=== PATIENT | female | born 1940 | race Caucasian/White ===

== ENCOUNTER 2017-09-25 12:23 | Inpatient (IN) | payer MEDICARE, OTHER ==
[2017-09-25] MEDS: ASPIRIN 325 MG TAB PO (13:43)
[2017-09-25] MEDS: NITROGLYCERIN 2% 1 GM OINT PKT TD (13:43)
[2017-09-25 13:46] LABS: ADD MAN DIFF? NO
[2017-09-25 13:48] LABS: BASOPHILS % 0.7 % (0.0-2.0); EOSINOPHILS # 0.3 10^3/ul (0.0-0.5); EOSINOPHILS % 6.1 % (0.0-7.0); HEMATOCRIT 32.7 % (37.0-47.0); HEMOGLOBIN 10.7 g/dl (12.0-16.0); LYMPHOCYTES # 1.4 10^3/ul (0.8-2.9); LYMPHOCYTES % 26.5 % (15.0-51.0); MEAN CORPUSCULAR HEMOGLOBIN 31.8 pg (29.0-33.0); MEAN CORPUSCULAR HGB CONC 32.7 g/dl (32.0-37.0); MEAN PLATELET VOLUME 10.9 fl (7.4-10.4); MONOCYTE # 0.4 10^3/ul (0.3-0.9); MONOCYTES % 7.2 % (0.0-11.0); NEUTROPHIL # 3.2 10^3/ul (1.6-7.5); NEUTROPHILS % 59.3 % (39.0-77.0); PLATELET COUNT 156 10^3/UL (140-415); RED BLOOD COUNT 3.37 10^6/ul (4.20-5.40); RED CELL DISTRIBUTION WIDTH 13.3 % (11.5-14.5)
[2017-09-25 13:48] LABS: WHITE BLOOD COUNT 5.4 10^3/ul (4.8-10.8)
[2017-09-25 14:20] LABS: TROPONIN-I < 0.010 ng/ml (0.000-0.120)
[2017-09-25 14:25] LABS: FREE T4 (FREE THYROXINE) 0.95 ng/dl (0.78-2.44)
[2017-09-25] MEDS ORDERED: ACETAMINOPHEN 325 MG TAB PO ×2 (17:00→19:30)
[2017-09-25] MEDS ORDERED: ONDANSETRON 4 MG INJ IV ×2 (17:00→19:30)
[2017-09-25] MEDS ORDERED: NACL 0.9% 3 ML SYG IV (19:30)
[2017-09-25] MEDS ORDERED: morphine 2 MG INJ IV (19:30)
[2017-09-25] MEDS ORDERED: MAGNESIUM HYDROXIDE 30ML CUP PO (19:30)
[2017-09-25] MEDS ORDERED: ZOLPIDEM 5 MG TAB PO (19:30)
[2017-09-25] MEDS ORDERED: DOCUSATE SODIUM 100 MG CAP PO (19:30)
[2017-09-25] MEDS ORDERED: HYDROCODONE/APAP (5/325) TAB PO (19:30)
[2017-09-25] MEDS: CILOSTAZOL 100 MG TAB PO (21:00)
[2017-09-25] MEDS: DICLOFENAC (EC) 75 MG TAB PO (21:34)
[2017-09-25] MEDS: ALLOPURINOL 100 MG TAB PO (21:34)
[2017-09-25] MEDS: ATORVASTATIN 40 MG TAB PO (21:34)
[2017-09-26] MEDS: NITROGLYCERIN (SL) 0.4 MG TAB SL
[2017-09-26 01:35] LABS: TROPONIN-I < 0.010 ng/ml (0.000-0.120)
[2017-09-26 05:43] LABS: ADD MAN DIFF? NO
[2017-09-26 05:54] LABS: BASOPHIL # 0.1 10^3/ul (0.0-0.1); BASOPHILS % 1.1 % (0.0-2.0); EOSINOPHILS # 0.4 10^3/ul (0.0-0.5); EOSINOPHILS % 7.4 % (0.0-7.0); HEMATOCRIT 30.2 % (37.0-47.0); HEMOGLOBIN 9.9 g/dl (12.0-16.0); LYMPHOCYTES # 1.6 10^3/ul (0.8-2.9); LYMPHOCYTES % 27.1 % (15.0-51.0); MEAN CORPUSCULAR HEMOGLOBIN 31.8 pg (29.0-33.0); MEAN CORPUSCULAR HGB CONC 32.8 g/dl (32.0-37.0); MEAN CORPUSCULAR VOLUME 97.1 fl (82.0-101.0); MEAN PLATELET VOLUME 11.2 fl (7.4-10.4); MONOCYTE # 0.5 10^3/ul (0.3-0.9); MONOCYTES % 9.1 % (0.0-11.0); NEUTROPHIL # 3.1 10^3/ul (1.6-7.5); NEUTROPHILS % 54.9 % (39.0-77.0); PLATELET COUNT 140 10^3/UL (140-415); RED BLOOD COUNT 3.11 10^6/ul (4.20-5.40); RED CELL DISTRIBUTION WIDTH 13.3 % (11.5-14.5)
[2017-09-26 05:54] LABS: WHITE BLOOD COUNT 5.7 10^3/ul (4.8-10.8)
[2017-09-26] MEDS: LEVOTHYROXINE 150 MCG TAB PO (06:05)
[2017-09-26 06:09] LABS: HEMOGLOBIN A1C 5.6 % (0-5.9)
[2017-09-26 06:12] LABS: ANION GAP 16 (8-16); BLOOD UREA NITROGEN 83 mg/dl (7-20); CALCIUM 8.4 mg/dl (8.4-10.2); CARBON DIOXIDE 17 mmol/L (21-31); CHLORIDE 115 mmol/L (97-110); CHOLESTEROL 151 mg/dl (100-200); CREATININE 3.26 mg/dl (0.44-1.00); GLUCOSE 100 mg/dl (70-220); HDL CHOLESTEROL 49 mg/dl (33-92); LDL CHOLESTEROL,CALCULATED 84 mg/dl; MAGNESIUM 2.3 mg/dl (1.7-2.5); POTASSIUM 4.8 mmol/L (3.5-5.1); SODIUM 143 mmol/L (135-144); TRIGLYCERIDES 88 mg/dl (0-149)
[2017-09-26 06:27] LABS: TROPONIN-I < 0.010 ng/ml (0.000-0.120)
[2017-09-26] MEDS: CILOSTAZOL 100 MG TAB PO ×2 (08:36→20:57)
[2017-09-26] MEDS: CHOLECALCIFEROL 2,000 UNIT CAP PO (08:36)
[2017-09-26] MEDS: LISINOPRIL 5 MG TAB PO (08:37)
[2017-09-26] MEDS: ALLOPURINOL 100 MG TAB PO (08:38)
[2017-09-26] MEDS: ASPIRIN (EC) 81 MG TAB PO (08:38)
[2017-09-26] MEDS: ISOSORBIDE MONONITRATE(SR)30 MG TAB PO (08:39)
[2017-09-26] MEDS: FERROUS SULFATE (EC) 325 MG TAB PO (08:39)
[2017-09-26 13:35] LABS: TROPONIN-I < 0.010 ng/ml (0.000-0.120)
[2017-09-26] MEDS ORDERED: morphine LIQ (10 MG/5 ML) CUP PO (14:00)
[2017-09-26] MEDS: ATORVASTATIN 40 MG TAB PO (20:56)
[2017-09-26 22:42] LABS: ADD UMIC YES; UR ASCORBIC ACID NEGATIVE (NEGATIVE); UR BILIRUBIN (Dip) NEGATIVE (NEGATIVE); UR BLOOD (Dip) NEGATIVE (NEGATIVE); UR CLARITY CLEAR (CLEAR); UR COLOR COLORLESS (YELLOW); UR GLUCOSE (Dip) NEGATIVE (NEGATIVE); UR KETONES (Dip) NEGATIVE (NEGATIVE); UR LEUKOCYTE ESTERASE (Dip) NEGATIVE Leu/ul (NEGATIVE); UR NITRITE (Dip) NEGATIVE (NEGATIVE); UR RBC 0 /HPF (0-5); UR SPECIFIC GRAVITY (Dip) 1.005 (1.003-1.030); UR TOTAL PROTEIN (Dip) 1+ mg/dl (NEGATIVE); UR UROBILINOGEN (Dip) NEGATIVE (NEGATIVE); UR WBC 0 /HPF (0-5)
[2017-09-26 22:42] LABS: SODIUM,URINE RANDOM 24 mmol/L (30-90)
[2017-09-26 22:44] LABS: CREATININE,URINE RANDOM 28.89 mg/dl (20-320); PROTEIN/CREAT RATIO 2.69 RATIO
[2017-09-27 06:18] LABS: ADD MAN DIFF? NO
[2017-09-27 06:24] LABS: WHITE BLOOD COUNT 5.7 10^3/ul (4.8-10.8)
[2017-09-27 06:24] LABS: BASOPHILS % 0.7 % (0.0-2.0); EOSINOPHILS # 0.4 10^3/ul (0.0-0.5); EOSINOPHILS % 7.6 % (0.0-7.0); HEMATOCRIT 30.3 % (37.0-47.0); HEMOGLOBIN 9.8 g/dl (12.0-16.0); LYMPHOCYTES # 1.4 10^3/ul (0.8-2.9); MEAN CORPUSCULAR HEMOGLOBIN 31.5 pg (29.0-33.0); MEAN CORPUSCULAR HGB CONC 32.3 g/dl (32.0-37.0); MEAN CORPUSCULAR VOLUME 97.4 fl (82.0-101.0); MEAN PLATELET VOLUME 11.1 fl (7.4-10.4); MONOCYTE # 0.5 10^3/ul (0.3-0.9); MONOCYTES % 8.5 % (0.0-11.0); NEUTROPHIL # 3.4 10^3/ul (1.6-7.5); PLATELET COUNT 145 10^3/UL (140-415); RED BLOOD COUNT 3.11 10^6/ul (4.20-5.40); RED CELL DISTRIBUTION WIDTH 13.3 % (11.5-14.5)
[2017-09-27] MEDS: LEVOTHYROXINE 150 MCG TAB PO (06:44)
[2017-09-27 07:04] LABS: ALANINE AMINOTRANSFERASE 67 IU/L (13-69); ALBUMIN 3.1 g/dl (3.3-4.9); ALBUMIN/GLOBULIN RATIO 1.03; ALKALINE PHOSPHATASE 71 IU/L (42-121); ANION GAP 15 (8-16); ASPARTATE AMINO TRANSFERASE 42 IU/L (15-46); BILIRUBIN,INDIRECT 0.1 mg/dl (0-1.1); BILIRUBIN,TOTAL 0.1 mg/dl (0.2-1.3); BLOOD UREA NITROGEN 84 mg/dl (7-20); CALCIUM 8.5 mg/dl (8.4-10.2); CARBON DIOXIDE 17 mmol/L (21-31); CHLORIDE 115 mmol/L (97-110); CREATININE 3.65 mg/dl (0.44-1.00); GLUCOSE 102 mg/dl (70-220); POTASSIUM 4.9 mmol/L (3.5-5.1); SODIUM 142 mmol/L (135-144); TOTAL PROTEIN 6.1 g/dl (6.1-8.1)
[2017-09-27 07:11] LABS: CREATINE KINASE 168 IU/L (23-200)
[2017-09-27 07:18] LABS: CK INDEX 0.9; CK-MB 1.44 ng/ml (0.0-2.4); TROPONIN-I 0.011 ng/ml (0.000-0.120)
[2017-09-27] MEDS: ASPIRIN (EC) 81 MG TAB PO (08:20)
[2017-09-27] MEDS: ALLOPURINOL 100 MG TAB PO (08:21)
[2017-09-27] MEDS: CHOLECALCIFEROL 2,000 UNIT CAP PO (08:21)
[2017-09-27] MEDS: CILOSTAZOL 100 MG TAB PO ×2 (08:22→20:22)
[2017-09-27] MEDS: FERROUS SULFATE (EC) 325 MG TAB PO (08:22)
[2017-09-27] MEDS: ISOSORBIDE MONONITRATE(SR)60 MG TAB PO (09:00)
[2017-09-27] MEDS ORDERED: LISINOPRIL 5 MG TAB PO (09:00)
[2017-09-27 11:41] LABS: TROPONIN-I < 0.010 ng/ml (0.000-0.120)
[2017-09-27] MEDS: MAGNESIUM SULFATE 3 GM in DEXTROSE 5% 100 ML IVPB (13:17)
[2017-09-27] MEDS: ATORVASTATIN 40 MG TAB PO (20:07)
[2017-09-28 06:18] LABS: ANION GAP 13 (8-16); BLOOD UREA NITROGEN 99 mg/dl (7-20); CALCIUM 8.4 mg/dl (8.4-10.2); CARBON DIOXIDE 17 mmol/L (21-31); CHLORIDE 114 mmol/L (97-110); CREATININE 4.58 mg/dl (0.44-1.00); GLUCOSE 101 mg/dl (70-220); MAGNESIUM 3.2 mg/dl (1.7-2.5); PHOSPHORUS 6.7 mg/dl (2.5-4.9); SODIUM 139 mmol/L (135-144)
[2017-09-28] MEDS: LEVOTHYROXINE 150 MCG TAB PO (07:26)
[2017-09-28] MEDS: FERROUS SULFATE (EC) 325 MG TAB PO (07:59)
[2017-09-28] MEDS: ASPIRIN (EC) 81 MG TAB PO (07:59)
[2017-09-28] MEDS: CILOSTAZOL 100 MG TAB PO (07:59)
[2017-09-28] MEDS: ALLOPURINOL 100 MG TAB PO (08:00)
[2017-09-28] MEDS: ISOSORBIDE MONONITRATE(SR)60 MG TAB PO (08:00)
[2017-09-28] MEDS: CHOLECALCIFEROL 2,000 UNIT CAP PO (08:00)
[2017-09-29] MEDS ORDERED: ISOSORBIDE MONONITRATE(SR)30 MG TAB PO (09:00)
== END 2017-09-28 16:20 | disposition home or self-care (01) | DRG 303 ==
LOC: E/R 12:23 → 6WM 16:54
PROVIDERS: Internal Medicine
DX: I25.10 Atherosclerotic heart disease of native coronary artery without angina pectoris (principal); I13.0 Hypertensive heart and chronic kidney disease with heart failure and stage 1 through stage 4 chronic kidney disease, or unspecified chronic kidney disease; N18.4 Chronic kidney disease, stage 4 (severe); E87.2 Acidosis; I50.9 Heart failure, unspecified; M10.9 Gout, unspecified; E03.9 Hypothyroidism, unspecified; I49.3 Ventricular premature depolarization; E78.5 Hyperlipidemia, unspecified; I73.9 Peripheral vascular disease, unspecified; R80.9 Proteinuria, unspecified; Z79.82 Long term (current) use of aspirin; Z90.49 Acquired absence of other specified parts of digestive tract
CPT/HCPCS: 36415; 71045; 76775; 80048; 80053; 80061; 81001; 81003; 82550; 82553; 82570; 83036; 83735; 84100; 84300; 84439; 84443; 84484; 85025; 89190; 93005; 93306; 99217; 99285-25; G0378